=== PATIENT | female | born 1995 | race Two or more races ===

== ENCOUNTER 2018-11-19 03:02 | Emergency (ER) | payer OTHER ==
[~2018-11-19] VITALS: Ht 170.2 cm; Wt 59.9 kg
[2018-11-19] MEDS ORDERED: NKM (03:11)
[2018-11-19 03:14] VITALS: BP 120/74
[2018-11-19] MEDS ORDERED: LORazepam 1mg tab ORAL ONE (03:30)
[2018-11-19 04:00] VITALS: BP 132/84
--- NOTE | 2018-11-19 04:02 | Emergency Room Report ---
History of Present Illness General Chief Complaint: Chest Pain Source: Patient Present Illness HPI Is a 23-year-old female with no past medical history. She presents with chief complaint of palpitation and shortness of breath. Onset was about an hour ago. She was getting flew with her friend when she fell her heart beating fast. She developed short of breath and felt nauseous. She had one episode vomiting. [place] numbness and tingling is to her whole body. She had similar symptom in the past but never had any workup. Usually doesn't last as long. This episode lasts for 30 minutes. Better after she vomited and her heart rate is better. No syncope. Denies any alcohol drugs. Denies any anxiety symptoms. Allergies: Coded Allergies: No Known Allergies (Unverified , 11/19/18) Patient History Past Medical History: see triage record, old chart reviewed Past Surgical History: none Pertinent Family History: none Social History: Denies: smoking Last Menstrual Period: Three weeks ago Now: No Immunizations: other Reviewed Nursing Documentation: PMH: Agreed; PSxH: Agreed Nursing Documentation-PMH Past Medical History: No Stated History Review of Systems Eye: Denies: eye pain, blurred vision ENT: Denies: ear pain, nose congestion, throat swelling Respiratory: Reports: shortness of breath; Denies: cough Cardiovascular: Reports: palpitations; Denies: chest pain Gastrointestinal: Denies: abdominal pain, diarrhea, nausea, vomiting Musculoskeletal: Denies: back pain, joint pain Skin: Denies: rash Neurological: Denies: headache, numbness Endocrine: Denies: increased thirst, increased urine Hematologic/Lymphatic: Denies: easy bruising All Other Systems: negative except mentioned in HPI Physical Exam Vital Signs Date Time Temp Pulse Resp B/P (MAP) Pulse Ox O2 Delivery O2 Flow Rate FiO2 11/19/18 03:07 98.1 99 18 111/74 98 Room Air vitals normal Sp02 EP Interpretation: reviewed, normal General Appearance: well appearing, no apparent distress, alert Head: normocephalic, atraumatic Eyes: bilateral eye PERRL, bilateral eye EOMI ENT: hearing grossly normal, normal pharynx Neck: full range of motion, supple, no meningismus Respiratory: chest non-tender, lungs clear, normal breath sounds Cardiovascular #1: regular rate, rhythm, no murmur Gastrointestinal: normal bowel sounds, non tender, no mass, no organomegaly, no bruit, non-distended Musculoskeletal: back normal, gait/station normal, normal range of motion Psychiatric: anxious Skin: warm/dry Medical Decision Making Diagnostic Impression: Primary Impression: Palpitations ER Course She presents with palpitation and shortness of breath. This is most likely a hyperventilatory syndrome versus anxiety/panic attack. Even know she says she' s not anxious, she is shaky and looks anxious. This could also be an arrhythmia like SVT, WPW, A. fib to name a few. EKG is normal. We'll discharge home with referral to see a toll service observer for Holter monitor. EKG Diagnostic Results Rate: normal Rhythm: NSR ST Segments: no acute changes Last Vital Signs Date Time Temp Pulse Resp B/P (MAP) Pulse Ox O2 Delivery O2 Flow Rate FiO2 11/19/18 03:14 97.4 87 18 120/74 98 Room Air Status: improved Disposition: HOME, SELF-CARE Condition: Stable Referrals: NOT CHOSEN IPA/,REFERRING (PCP) Additional Instructions: Avoid stimulants like coffee, tea, caffeine, chocolate, [id number] cough and cold medicine. Follow-up with your doctor within a week. You will need a referral to see a toll service observer for a Holter monitor. Return if worse. Kevin Georges MD Nov 19, 2018 04:02
[2018-11-19 04:09] LABS: APPEARANCE,URINE CLEAR; BILIRUBIN, URINE NEGATIVE (NEGATIVE); COLOR,URINE PALE YELLOW; GLUCOSE, URINE (UA) NEGATIVE (NEGATIVE); KETONES,URINE NEGATIVE (NEGATIVE); LEUKOCYTE ESTERASE ,URINE 1+ (NEGATIVE); NITRITE,URINE NEGATIVE (NEGATIVE); PH,URINE 6 (4.5-8.0); PROTEIN,URINE NEGATIVE (NEGATIVE); UROBILINOGEN,URINE NORMAL MG/DL (0.0-1.0)
[2018-11-19 04:10] VITALS: BP 132/84
== END 2018-11-19 04:17 | disposition home or self-care (01) ==
LOC: EMR 03:26
DX: R00.2 Palpitations (principal); R06.02 Shortness of breath; R11.2 Nausea with vomiting, unspecified
CPT/HCPCS: 81003; 93005; 99283